=== PATIENT | female | born 1975 | race Asian ===

== ENCOUNTER 2018-04-14 13:56 | Emergency (ER) | payer MEDICAID ==
[~2018-04-14] VITALS: Ht 152.4 cm; Wt 70.0 kg
[2018-04-14 13:59] VITALS: BP 130/86
[2018-04-14] MEDS ORDERED: KEN0.1O TP (14:45)
[2018-04-14] MEDS ORDERED: HYDR25CA PO (14:45)
== END 2018-04-14 14:51 | disposition home or self-care (01) ==
LOC: ER 13:57
DX: L25.9 Unspecified contact dermatitis, unspecified cause (principal); Z90.49 Acquired absence of other specified parts of digestive tract; Z79.899 Other long term (current) drug therapy
CPT/HCPCS: 99283